=== PATIENT | male | born 1980 | race African-American/Black ===

== ENCOUNTER 2016-12-14 07:04 | Emergency (ER) ==
[2016-12-14 07:12] VITALS: TEMP 98.3; BMI 43.0
--- NOTE | 2016-12-14 07:43 | ED.PDOC ---
General ED Provider: Dr. ANSON MANLEY Chief Complaint: Rectal Pain Stated Complaint: Constipated this week. Bearing down hard 2 days ago and BM was very painful plus saw blood in toilet. Patient has been "eating poorly" ( fast food mostly) x 2 weeks since getting out of assisted. Time Seen by Physician: 07:39 Mode of Arrival: Walk-In Information Source: Patient Exam Limitations: No limitations Nursing and Triage Documentation Reviewed and Agree: Yes GI Complaint Exam - Rectal Complaint/Exam Patient Complains of: Reports: Rectal pain, Rectal bleeding Onset/Duration: 2 days Symptoms Are: Still present Timing: Intermittent Episodes Lasting: Minutes Initial Severity: Severe Current Severity: Moderate Location: Reports: Anal Character: Reports: Sharp, Burning Aggravating: Reports: Bowel movement, Sitting. Denies: Anal intercourse Alleviating: Reports: None Associated Signs and Symptoms: Reports: Blood-streaked stool Rectal Exam: Present: Internal hemorrhoids, Fissures (anal fissure at approx 6 o 'clock position) Differential Diagnoses: Hemorrhoids, Other (anal fissure) Review of Systems - Review Of Systems Constitutional: Reports: No symptoms GI: Reports: Blood streaked bowels, Other (pain with BM or attempted BM) : Reports: No symptoms Musculoskeletal: Reports: No symptoms Skin: Reports: No symptoms Neurological: Reports: No symptoms All Other Systems: Reviewed and Negative Past Medical History - Past Medical History Previously Healthy: Yes Endocrine: Reports: None Cardiovascular: Reports: None Respiratory: Reports: Asthma Hematological: Reports: None Gastrointestinal: Reports: None Genitourinary: Reports: None Neuro/Psych: Reports: None Musculoskeletal: Reports: None Cancer: Reports: None - Surgical History General Surgical History: Reports: None - Family History Family History: Reports: None - Social History Smoking Status: Current every day smoker, Light tobacco smoker Hx Substance Use: No Alcohol Screening: None Lives: With family - Immunizations Tetanus Shot up to Date: Yes Influenza Vaccine within 12 Months: No Pneumococcal Vaccine up to Date: No Physical Exam - Physical Exam Appearance: Well-appearing, No pain distress, Well-nourished, Obese Ill-appearing: None Pain Distress: None GI/: Soft, Nontender (rectal exam: tender anal fissure at 6 o'clock position, thrombosed internal hemorrhoid at 4 o'clock position), No masses, Bowel sounds normal, No Organomegaly, Tender Skin: Warm, Dry, Normal color Psychiatric: Affect appropriate, Mood appropriate Critical Care Note - Critical Care Note Total Time (mins): 0 Course - Course Vital Signs: Temp Pulse Resp BP Pulse Ox 12/14/16 07:06 98.3 F 69 16 188/127 H 97 Departure - Departure Time of Disposition: 08:04 Disposition: HOME SELF-CARE Discharge Problem: Acute anal fissure, Internal thrombosed hemorrhoids Instructions: Anal Fissure (ED), Hemorrhoids (ED) Condition: Good Pt referred to PMD for follow-up: No (see doctor if no better in 3 days) Allergies/Adverse Reactions: Allergies No Known Drug Allergies Adverse Reaction (Verified 12/14/16 07:20) Home Medications: Ambulatory Orders Albuterol Sulfate [Albuterol Sulfate Hfa] 8.5 gm IH DIRECTED PRN 03/23/15 Dibucaine [Nupercainal Ointment] 1 applic RC DIRECTED #2 oz 12/14/16 Hydrocortisone Acetate [Anusol-Hc] 25 mg RC TID #12 supp.rect 12/14/16 Disposition Discussed With: Patient
[2016-12-14 08:32] VITALS: BP 147/94
== END 2016-12-14 08:13 | disposition home or self-care (01) ==
LOC: ED 07:04
DX: K60.0 Acute anal fissure (principal); K64.8 Other hemorrhoids; F17.210 Nicotine dependence, cigarettes, uncomplicated
CPT/HCPCS: 99282

== ENCOUNTER 2016-12-26 05:12 | Outpatient (CLI) | END 2016-12-26 05:13 | disposition home or self-care (01) | LOC: AMBL 05:12 | PROVIDERS: ATTEND Emergency Medicine | DX: J45.901 Unspecified asthma with (acute) exacerbation (principal) ==

== ENCOUNTER 2017-08-11 11:20 | Outpatient (CLI) | END 2017-08-11 11:21 | disposition left against medical advice (07) | LOC: AMBL 11:20 | PROVIDERS: ATTEND Internal Medicine | DX: I10 Essential (primary) hypertension (principal); F41.9 Anxiety disorder, unspecified; R25.8 Other abnormal involuntary movements; W19.XXXA Unspecified fall, initial encounter ==